=== PATIENT | female | born 1995 | race Caucasian/White ===

== ENCOUNTER → 2017-09-19 | Outpatient (CLI) | payer BC | LOC: LAB 19:31 | DX: J02.8 Acute pharyngitis due to other specified organisms (principal) ==

== ENCOUNTER 2020-11-27 12:34 | Emergency (ER) | payer OTHER ==
[2020-11-27] MEDS ORDERED: ZOLOFT 50MG50 MG PO (12:53)
[2020-11-27] MEDS ORDERED: PRENATAL MULTI1 EAC3 PO (12:53)
[2020-11-27 13:19] LABS: EOS # 0.03 (0.04-0.40); EOS % 0.7 % (1.0-5.0); HEMATOCRIT 37.2 % (37.0-47.0); HEMOGLOBIN 12.1 g/dL (12.5-16.0); LYMPH# 0.57 (1.50-4.00); MEAN CELL VOLUME 87 fl (78-100); MEAN CORPUSCULAR HEMOGLOBIN 28 pg (27-31); MEAN CORPUSCULAR HGB CONC 33 g/dL (33-37); MEAN PLATELET VOLUME 10.3 fl (7.4-10.4); MONO # 0.41 (0.20-0.80); NEU # 3.36 (1.40-6.50); PLATELET COUNT 202 K/mm3 (130-400); RED BLOOD COUNT 4.26 M/mm3 (4.10-5.30); RED CELL DISTRIBUTION WIDTH 13.3 % (11.5-14.5); WHITE BLOOD COUNT 4.4 K/mm3 (4.8-10.8)
[2020-11-27 13:33] LABS: ALBUMIN 3.5 g/dL (3.5-5.0)
[2020-11-27 13:34] LABS: POTASSIUM 3.2 mmol/L (3.5-5.1)
[2020-11-27 13:35] LABS: CALCIUM 8.5 mg/dL (8.3-10.5)
[2020-11-27 13:36] LABS: TOTAL PROTEIN 6.6 g/dL (6.4-8.3)
[2020-11-27 13:38] LABS: TOTAL BILIRUBIN 0.2 mg/dL (0.2-1.2)
[2020-11-27] MEDS ORDERED: ZOFRAN ODT4 MG PO (14:36)
[2020-11-27] MEDS ORDERED: POTASSIUM CHLO20 ME3 PO (14:36)
[2020-11-27 14:50] VITALS: BP 107/60
== END 2020-11-27 14:48 | disposition home or self-care (01) ==
LOC: ED 12:34
PROVIDERS: Family Medicine
DX: O98.512 Other viral diseases complicating pregnancy, second trimester (principal); A08.4 Viral intestinal infection, unspecified; Z3A.22 22 weeks gestation of pregnancy